=== PATIENT | male | born 1955 | race Caucasian/White ===

== ENCOUNTER 2018-05-12 06:35 | Emergency (ER) | payer OTHER ==
[~2018-05-12] VITALS: Ht 180.3 cm; Wt 70.3 kg
[2018-05-12] MEDS ORDERED: ZOCOR20 MG PO (06:44)
[2018-05-12] MEDS ORDERED: LISINOPRIL10 MG PO (06:44)
[2018-05-12] MEDS ORDERED: OMEPRAZOLE40 MG PO (06:45)
[2018-05-12 07:17] LABS: BASOPHILS 0.3 % (0.0-2.0); EOSINOPHILS 0.5 % (0.0-3.0); HEMATOCRIT 42.6 % (42.0-52.0); HEMOGLOBIN 14.6 gm/dL (14.0-18.0); LYMPHOCYTES 8.5 % (24.0-44.0); MCH 31.7 pg (26.0-34.0); MCHC 34.2 g/dL (28.0-37.0); MCV 92.8 fL (80.0-100.0); MONOCYTES 9.2 % (1.0-8.0); PLATELET COUNT 180 thou/uL (150-400); POLYS 81.5 % (36.0-66.0); RBC 4.59 mil/uL (4.50-6.00); RDW 13.4 % (10.5-14.5); WBC 7.3 thou/uL (4.0-11.0)
[2018-05-12 07:26] LABS: ANION GAP 8 mmol/L (7-16); BUN 13 mg/dL (7-18); CALCIUM 9.1 mg/dL (8.5-10.1); CHLORIDE 102 mmol/L (98-107); CO2 28 mmol/L (21-32); GLUCOSE 99 mg/dL (74-106); POTASSIUM 3.9 mmol/L (3.5-5.1); SODIUM 138 mmol/L (136-145)
[2018-05-12 07:35] LABS: TROPONIN-I <0.06 ng/mL (<0.06)
[2018-05-12 09:15] VITALS: BP 111/70
--- NOTE | 2018-05-12 13:42 | EKG ---
[address] [place] [address] ELECTROCARDIOGRAM REPORT Name: JAY JIMENEZ [id number] ������������������ Admission: 05/12/18 ������������������ Attend Phys: Discharge: 05/12/18 ������������������ Date of : 59 Report #: [id number] ����������������������������������������������������������������� [id number] THIS REPORT FOR: //name// [facility] ED Test Date: 2018-05-12 Test Time: 06:46:52 Pat Name: JAY JIMENEZ Department: Room: Gender: Sock Turner: SHANTANUOLEMALAN : 1955 Requested By: Ericka Mckee Order Number: [id number] MD: Yehuda López Measurements Intervals [place] Rate: 67 P: 30 FL: 173 QRS: 15 QRSD: 100 T: 41 QT: 388 QTc: 410 Interpretive Statements Sinus rhythm Abnormal R-wave progression, early transition Compared to ECG 04/07/2000 19:32:21 No significant changes Electronically Signed On 05-12-2018 13:42:08 CDT by Yehuda López [email or web address] ��������������������������������������������� <ELECTRONICALLY SIGNED> ���������������������������������������� By: Yehuda López MD, [facility] ��������������������������������������������� 05/12/18 [id number] 5 Yehuda López MD, FACC /EPI
== END 2018-05-12 09:16 | disposition home or self-care (01) ==
LOC: ER 06:35
PROVIDERS: Emergency Medicine
DX: S09.8XXA Other specified injuries of head, initial encounter (principal); R55 Syncope and collapse; K21.9 Gastro-esophageal reflux disease without esophagitis; E78.5 Hyperlipidemia, unspecified; I10 Essential (primary) hypertension; W18.39XA Other fall on same level, initial encounter; Y93.89 Activity, other specified; Y92.89 Other specified places as the place of occurrence of the external cause; Y99.8 Other external cause status

== ENCOUNTER 2019-09-02 17:30 | Emergency (ER) | payer OTHER ==
[~2019-09-02] VITALS: Ht 180.3 cm; Wt 74.8 kg
[~2019-09-02 17:30] MED LIST: LISINOPRIL10 MG PO; OMEPRAZOLE40 MG PO; ZOCOR20 MG PO
[2019-09-02 18:04] LABS: ABSOLUTE NEUTROPHILS 4.9 thou/uL (1.4-8.2); BASOPHILS 0.4 % (0.0-2.0); EOSINOPHILS 1.7 % (0.0-3.0); HEMATOCRIT 41.6 % (42.0-52.0); HEMOGLOBIN 14.3 gm/dL (14.0-18.0); LYMPHOCYTES 16.7 % (24.0-44.0); MCH 32.2 pg (26.0-34.0); MCHC 34.4 g/dL (28.0-37.0); MCV 93.6 fL (80.0-100.0); MONOCYTES 10.2 % (1.0-8.0); PLATELET COUNT 216 thou/uL (150-400); RBC 4.44 mil/uL (4.50-6.00); RDW 13.1 % (10.5-14.5); WBC 6.8 thou/uL (4.0-11.0)
[2019-09-02 18:11] LABS: CALCIUM 8.9 mg/dL (8.5-10.1); POTASSIUM 3.9 mmol/L (3.5-5.1)
[2019-09-02 18:22] LABS: ALBUMIN 3.8 g/dL (3.4-5.0); DIRECT BILIRUBIN 0.2 mg/dL (<0.1-0.2); TOTAL BILIRUBIN 0.5 mg/dL (0.2-1.0); TOTAL PROTEIN 7.1 g/dL (6.4-8.2)
[2019-09-02] MEDS ORDERED: PERCOCET 5-3251 EACH PO (19:34)
[2019-09-02] MEDS ORDERED: ZOFRAN ODT4 MG PO (19:34)
[2019-09-02 19:37] VITALS: BP 129/84
== END 2019-09-02 19:40 | disposition home or self-care (01) ==
LOC: ER 17:30
PROVIDERS: Emergency Medicine
DX: K80.50 Calculus of bile duct without cholangitis or cholecystitis without obstruction (principal); K21.9 Gastro-esophageal reflux disease without esophagitis; E78.5 Hyperlipidemia, unspecified; I10 Essential (primary) hypertension; Z79.899 Other long term (current) drug therapy; Z20.828 Contact with and (suspected) exposure to other viral communicable diseases

== ENCOUNTER → 2019-09-03 | Outpatient (CLI) | payer OTHER ==
[~2019-09-03] MED LIST changes: +PERCOCET 5-3251 EACH PO; +ZOFRAN ODT4 MG PO
== END ==
LOC: ULTRA 09:10
PROVIDERS: ATTEND Surgery
DX: K80.20 Calculus of gallbladder without cholecystitis without obstruction (principal); N28.1 Cyst of kidney, acquired